=== PATIENT | female | born 1955 | race Caucasian/White ===

== ENCOUNTER 2022-10-06 14:28 | Emergency (ER) | payer OTHER ==
[~2022-10-06] VITALS: Ht 160 cm; Wt 74.4 kg
[2022-10-06] MEDS ORDERED: KETOROLAC TROMETHAMINE 30 MG/ML VIAL IV STA (15:00)
[2022-10-06 15:06] LABS: BASOPHILS % 0.4 % (0.0-1.0); EOSINOPHILS # (AUTO) 0.1 (0.0-0.4); EOSINOPHILS % 0.8 % (0.0-6.0); HEMATOCRIT 46.8 % (34.2-44.1); HEMOGLOBIN 14.4 g/dL (12.0-16.0); LYMPHOCYTES # (AUTO) 2.3 (1.0-3.2); LYMPHOCYTES % 28.8 % (18.0-39.1); MEAN CORPUSCULAR HEMOGLOBIN 31.8 pg (28-32); MEAN CORPUSCULAR HGB CONC 30.8 g/dL (31-35); MEAN CORPUSCULAR VOLUME 103.3 fL (81-99); MONOCYTES # (AUTO) 0.6 (0.2-0.8); MONOCYTES % 7.6 % (4.4-11.3); PLATELET COUNT 300 x10e3/uL (140-360); RED BLOOD COUNT 4.53 x10e6/uL (3.6-5.1)
[2022-10-06 15:19] LABS: ALBUMIN 3.6 g/dL (3.5-5.0); ALBUMIN/GLOBULIN RATIO 1.6 (0.8-2.0); ANION GAP 14.8 mmol/L (8-16); CALCIUM 9.1 mg/dL (8.4-10.2); CREATININE, SERUM 0.84 mg/dL (0.57-1.11); POTASSIUM 3.8 mmol/L (3.5-5.1)
[2022-10-06 16:04] LABS: CLARITY,URINE CLEAR (CLEAR); COLOR,URINE YELLOW (YELLOW)
[2022-10-06 16:05] LABS: KETONES,URINE NEGATIVE (NEGATIVE); LEUKOCYTE ESTERASE ,URINE NEGATIVE (NEGATIVE); NITRITE,URINE NEGATIVE (NEGATIVE); PROTEIN,URINE DIPSTICK NEGATIVE (NEGATIVE); URINE UROBILINOGEN 0.2 mg/dL (0.2 - 1)
[2022-10-06 16:16] LABS: EPITHELIAL CELLS,URINE FEW /LPF
[2022-10-06] MEDS ORDERED: LIDOCAINE1 EACH EXT (16:22)
[2022-10-06] MEDS ORDERED: NAPROXEN250 MG PO (16:23)
[2022-10-07] MEDS ORDERED: LIDOCAINE 4% PATCH TP SCH (09:00)
== END 2022-10-06 16:37 | disposition home or self-care (01) ==
LOC: ER 14:31
DX: M79.18 Myalgia, other site (principal); M54.6 Pain in thoracic spine; I10 Essential (primary) hypertension; K21.9 Gastro-esophageal reflux disease without esophagitis
CPT/HCPCS: 36415; 71045; 80053; 81001; 83690; 84484; 85025; 93005; 99284; J1885